=== PATIENT | female | born 1940 | race Caucasian/White ===

== ENCOUNTER → 2020-05-05 | Outpatient (CLI) | payer MEDICARE, MEDICAID ==
[~2020-05-05] MED LIST: ALBUTEROL2.5 MG/3 M INH; AMLODIPINE BESY10 MG PO; AMLODIPINE BESYL5 MG PO; ASPIRIN EC81 MG PO; ASPIRIN325 MG PO; ATORVASTATIN CA20 MG PO; ATROVENT-HFA12.9 GM INH; BRILINTA 90 MG90 MG PO; BUMETANIDE1 MG PO; CALCITRATE200 MG PO; CATAPRES0.2 MG PO; CLOPIDOGREL75 MG PO; COREG6.25 MG PO; DICLOFENAC SOD100 GM TOP; ENTRESTO 49 MG1 EACH PO; FUROSEMIDE40 MG PO; IMDUR ER TAB 6060 MG PO; K-DUR TAB 20 M20 MEQ PO; LIPITOR TAB 2020 MG PO; NEXIUM20 MG PO; NITROSTAT 0.40.4 MG SL; NORVASC10 MG PO; PREDNISONE 20 M20 MG PO; PREDNISONE5 MG PO; PRINIVIL20 MG PO; RANEXA500 MG PO; SPIRIVA RESPIMAT4 GM INH; SPIRONOLACTONE25 MG PO; VITAMIN D31250 MCG PO
== END ==
LOC: ECHO 08:24 → NM 10:00
DX: R06.02 Shortness of breath (principal); I34.0 Nonrheumatic mitral (valve) insufficiency; I07.1 Rheumatic tricuspid insufficiency; I35.0 Nonrheumatic aortic (valve) stenosis; I10 Essential (primary) hypertension
CPT/HCPCS: 78452; A9502; J2785

== ENCOUNTER → 2020-06-11 | Outpatient (CLI) | payer MEDICARE ==
[2020-06-11 11:16] LABS: HEMOGLOBIN 13.2 gm/dl (12.3-15.3); RED BLOOD COUNT 4.01 M/UL (4.00-5.10); WHITE BLOOD COUNT 6.7 K/UL (4.5-11.0)
[2020-06-11 11:30] LABS: BUN/CREATININE RATIO 13 (0-10)
== END ==
LOC: LAB 09:53
PROVIDERS: Internal Medicine Cardiovascular Disease
DX: I25.119 Atherosclerotic heart disease of native coronary artery with unspecified angina pectoris (principal); R94.39 Abnormal result of other cardiovascular function study; I10 Essential (primary) hypertension
CPT/HCPCS: 36415; 71046; 80048; 85025

== ENCOUNTER 2020-06-13 08:12 | Outpatient (CLI) | payer MEDICARE ==
[~2020-06-13] VITALS: Ht 157.5 cm; Wt 111.8 kg
[~2020-06-13 08:12] MED LIST changes: -PREDNISONE 20 M20 MG PO
[2020-06-13] MEDS ORDERED: PREDNISONE 20 M20 MG PO (09:12)
[2020-06-14 03:47] LABS: HEMOGLOBIN 11.1 gm/dl (12.3-15.3); RED BLOOD COUNT 3.4 M/UL (4.00-5.10); WHITE BLOOD COUNT 6.1 K/UL (4.5-11.0)
[2020-06-14 04:03] LABS: BUN/CREATININE RATIO 17 (0-10)
[2020-06-14] MEDS ORDERED: CLOPIDOGREL75 MG PO (12:36)
== END 2020-06-14 15:30 | disposition home or self-care (01) ==
LOC: CATH 08:12 → PROG CARE 13:04 → CATH 06-14 15:30
PROVIDERS: Internal Medicine Interventional Cardiology
DX: I25.118 Atherosclerotic heart disease of native coronary artery with other forms of angina pectoris (principal); I25.728 Atherosclerosis of autologous artery coronary artery bypass graft(s) with other forms of angina pectoris; I25.84 Coronary atherosclerosis due to calcified coronary lesion; T82.855A Stenosis of coronary artery stent, initial encounter; I11.0 Hypertensive heart disease with heart failure; I50.42 Chronic combined systolic (congestive) and diastolic (congestive) heart failure; I25.5 Ischemic cardiomyopathy; I25.2 Old myocardial infarction; J44.9 Chronic obstructive pulmonary disease, unspecified; E78.00 Pure hypercholesterolemia, unspecified; E78.5 Hyperlipidemia, unspecified; R51.9 Headache, unspecified; M81.0 Age-related osteoporosis without current pathological fracture; K21.9 Gastro-esophageal reflux disease without esophagitis; Y83.1 Surgical operation with implant of artificial internal device as the cause of abnormal reaction of the patient, or of later complication, without mention of misadventure at the time of the procedure; Z79.82 Long term (current) use of aspirin; Z95.5 Presence of coronary angioplasty implant and graft; Z79.899 Other long term (current) drug therapy; Z82.49 Family history of ischemic heart disease and other diseases of the circulatory system
CPT/HCPCS: 80048; 85027; 85347; 92920; 93005; 94664; 94760; 99152; 99153; C1725; C1760; C1769; C1887; J1644; J2250; J3010; J7030; Q9967

== ENCOUNTER 2020-12-30 10:41 | Observation (INO) | payer MEDICARE ==
[~2020-12-30] VITALS: Ht 157.5 cm; Wt 105.2 kg
[~2020-12-30 10:41] MED LIST changes: +PREDNISONE 20 M20 MG PO; +RANEXA1000 MG PO; -RANEXA500 MG PO
[2020-12-30 12:22] LABS: HEMOGLOBIN 12.7 gm/dl (12.3-15.3); RED BLOOD COUNT 3.8 M/UL (4.00-5.10); WHITE BLOOD COUNT 6.2 K/UL (4.5-11.0)
[2020-12-30 12:47] LABS: BUN/CREATININE RATIO 12 (0-10)
[2020-12-30] MEDS ORDERED: LIPITOR80 MG PO ×2 (13:46→15:17)
[2020-12-30] MEDS ORDERED: METOPROLOL SUCC25 MG PO (13:49)
[2020-12-30] MEDS ORDERED: ISOSORBIDE MON120 MG PO (13:50)
[2020-12-30] MEDS ORDERED: LASIX 40 MG TAB40 MG PO (13:51)
[2020-12-30] MEDS ORDERED: VOLTAREN ARTHRI20 GM TP (15:20)
[2020-12-31 01:26] LABS: HEMOGLOBIN 11.4 gm/dl (12.3-15.3); WHITE BLOOD COUNT 5.4 K/UL (4.5-11.0)
[2020-12-31 01:28] LABS: RED BLOOD COUNT 3.38 M/UL (4.00-5.10)
[2020-12-31 01:56] LABS: BUN/CREATININE RATIO 11 (0-10)
[2020-12-31] MEDS ORDERED: ISOSORBIDE MONO60 MG PO (09:22)
== END 2020-12-31 10:40 | disposition home or self-care (01) ==
LOC: ER1 10:41 → M/S 13:25 → CDU 13:25 → M/S 15:24
PROVIDERS: Nurse Practitioner; Physician Assistant; ADMIT Internal Medicine
DX: I25.119 Atherosclerotic heart disease of native coronary artery with unspecified angina pectoris (principal); Z95.1 Presence of aortocoronary bypass graft; I11.0 Hypertensive heart disease with heart failure; E78.5 Hyperlipidemia, unspecified; J44.9 Chronic obstructive pulmonary disease, unspecified; I50.42 Chronic combined systolic (congestive) and diastolic (congestive) heart failure; E66.01 Morbid (severe) obesity due to excess calories; Z95.810 Presence of automatic (implantable) cardiac defibrillator; Z95.5 Presence of coronary angioplasty implant and graft; Z98.51 Tubal ligation status; Z88.8 Allergy status to other drugs, medicaments and biological substances; G47.33 Obstructive sleep apnea (adult) (pediatric); I25.5 Ischemic cardiomyopathy; I44.7 Left bundle-branch block, unspecified; Z79.82 Long term (current) use of aspirin; K21.9 Gastro-esophageal reflux disease without esophagitis; Z20.822 Contact with and (suspected) exposure to COVID-19
CPT/HCPCS: 36415; 71045; 80048; 80053; 82550; 82553; 83735; 83874; 83880; 84484; 85025; 93005; 94640; 94760; 96372; 99285; G0378; J1650; U0002

== ENCOUNTER → 2021-01-23 | Outpatient (CLI) | payer MEDICARE ==
[~2021-01-23] MED LIST changes: +CLONIDINE HCL0.2 MG PO; +ISOSORBIDE MON120 MG PO; +ISOSORBIDE MONO60 MG PO; +KLOR-CON 1010 MEQ PO; +LASIX 40 MG TAB40 MG PO; +LIPITOR80 MG PO; +MAPAP500 MG PO; +METOPROLOL SUCC25 MG PO; +VOLTAREN ARTHRI20 GM TP
[2021-01-23 11:12] LABS: HEMOGLOBIN 12.5 gm/dl (12.3-15.3); RED BLOOD COUNT 3.82 M/UL (4.00-5.10)
[2021-01-23 11:29] LABS: BUN/CREATININE RATIO 11 (0-10)
== END ==
LOC: LAB 09:43
PROVIDERS: Internal Medicine Cardiovascular Disease
DX: M25.512 Pain in left shoulder (principal); R94.39 Abnormal result of other cardiovascular function study; I20.9 Angina pectoris, unspecified; I25.10 Atherosclerotic heart disease of native coronary artery without angina pectoris; I50.22 Chronic systolic (congestive) heart failure; I25.5 Ischemic cardiomyopathy; R06.02 Shortness of breath
CPT/HCPCS: 36415; 71046; 73030; 80048; 85025

== ENCOUNTER → 2021-01-27 | Outpatient (CLI) | payer MEDICARE | LOC: CATH 07:49 | DX: I25.10 Atherosclerotic heart disease of native coronary artery without angina pectoris (principal); I11.0 Hypertensive heart disease with heart failure; I50.22 Chronic systolic (congestive) heart failure; I25.5 Ischemic cardiomyopathy; Z20.822 Contact with and (suspected) exposure to COVID-19; I25.2 Old myocardial infarction; I44.7 Left bundle-branch block, unspecified; Z79.899 Other long term (current) drug therapy; Z95.5 Presence of coronary angioplasty implant and graft; Z95.810 Presence of automatic (implantable) cardiac defibrillator | CPT/HCPCS: 99152; 99153; C1760; C1769; J0360; J1644; J2250; J3010; J7030; Q9967 ==

== ENCOUNTER → 2021-02-18 | Outpatient (CLI) | payer MEDICARE | LOC: HEART 5 07:56 | DX: I25.10 Atherosclerotic heart disease of native coronary artery without angina pectoris (principal); I08.3 Combined rheumatic disorders of mitral, aortic and tricuspid valves; I27.20 Pulmonary hypertension, unspecified | CPT/HCPCS: 93306 ==